=== PATIENT | female | born 1940 | race Caucasian/White ===

== ENCOUNTER 2020-12-31 12:07 | Emergency (ER) | payer SELFPAY ==
[~2020-12-31] VITALS: Ht 165.1 cm; Wt 51.8 kg
[2020-12-31 12:21] VITALS: BP_SYST 71
--- NOTE | 2020-12-31 12:29 | NUR ---
PATIENT WHEELCHAIR ASSISTED TO BED 2
--- NOTE | 2020-12-31 12:38 | NUR ---
Patient ambulated to restroom for urine sample.
--- NOTE | 2020-12-31 12:40 | NUR ---
80 y/o F BIB daughter with c/c epigastric pain and eye issues. Patient A&Ox4, ambulatory by self and via wheelchair, daughter at bedside, states 5-6 years of epigastric pain that worsen the past 3 days. Patient reports epigastric pain, 8/10, burning/intermittent, radiating to right flank and right back. Patient also states associated nausea/bloating, stating "it feels like a sour taste going up to my throat." Abdomen distended/soft/round. No pain or redbound tenderness upon palpation. Last BM: this morning "started dark to brown." Denies fever, chills, vomiting, diarrhea, constipation. Bed locked in lowest position, side rails x 1, call light in reach. PMH/Meds/Allergies: Denies Sx: Cholecystectomy Addendum: 12/31/20 at 1257 by [facility] Medication list per daughter: Thyroidectomy, Levotoroxine, Clortalidona, Bisprolol, Nexium, Salemetrol Sx: "Thyroid removal"
[2020-12-31] MEDS: ONDANSETRON 4 MG/2 ML VIAL IVP ONE (13:30)
[2020-12-31] MEDS: NACL 0.9% 1,000 ML IV ONE (13:30)
[2020-12-31] MEDS: MORPHINE SULFATE 4 MG/ML SYR IVP ONE (13:31)
--- NOTE | 2020-12-31 13:31 | NUR ---
Patient transported to CT via gurney.
[2020-12-31 13:39] LABS: ALBUMIN 2.6 g/dL (3.4-5.0); ANION GAP 5.2 (8-16); ASPARTATE AMINOTRANSFERASE 265 U/L (15-37); CARBON DIOXIDE 30.1 mmol/L (21-32); CHLORIDE 101 mmol/L (98-107); CREATININE 0.8 mg/dL (0.6-1.3); GLUCOSE 237 mg/dL (74-106); LIPASE 403 U/L (73-393); POTASSIUM 4.3 mmol/L (3.5-5.1); SODIUM SERUM 132 mmol/L (136-145); TOTAL BILIRUBIN 0.9 mg/dL (0.0-1.0); UREA NITROGEN, BLOOD 10 mg/dL (7-18)
[2020-12-31 13:41] LABS: BASOPHILS % (AUTO) 0.6 % (0.0-2.0); HEMATOCRIT 36.3 % (36-48); LYMPHOCYTES # (AUTO) 1.2 K/uL (2.5-16.5); LYMPHOCYTES % (AUTO) 36.9 % (20.5-51.1); MEAN CORPUSCULAR HEMOGLOBIN 29 pg (27-31); MEAN CORPUSCULAR HGB CONC 33 g/dL (33-37); MEAN CORPUSCULAR VOLUME 87.8 fL (80-94); MONOCYTES # (AUTO) 0.3 K/uL (0.8-1.0); MONOCYTES % (AUTO) 9.6 % (1.7-9.3); NEUTROPHILS # (AUTO) 1.7 K/uL (1.8-7.7); NEUTROPHILS % (AUTO) 52.9 % (42.2-75.2); PLATELET COUNT (AUTO) 84 K/uL (140-450); RED BLOOD CELL COUNT(AUTO) 4.13 MIL/uL (4.20-5.40); RED CELL DISTRIBUTION WIDTH 18.1 % (11.6-13.7); WHITE BLOOD COUNT (AUTO) 3.3 K/uL (4.8-10.8)
--- NOTE | 2020-12-31 13:43 | NUR ---
Patient returned from CT via gurney; placed back onto IVF and environmental protection forester.
--- NOTE | 2020-12-31 13:50 | NUR ---
Patient states positive relief to nausea and pain. Denies any nausea; reports pain 0/10 at this time. lunchroom monitor remains in place; RR 16 even/unlabored.
--- NOTE | 2020-12-31 14:06 | NUR ---
Dr. López is evaluating patient at bedside.
--- NOTE | 2020-12-31 14:57 | NUR ---
Patient resting comfortably in semi-fowlers position. quality assurance monitor remains in place. VSS; respirations even/unlabored; no distress noted. Bed locked in lowest position, side rails x 2 for pt safety, call light in reach.
[2020-12-31] MEDS ORDERED: BISO5TAB23 PO (15:03)
[2020-12-31] MEDS ORDERED: ONDA-24 SL (15:03)
--- NOTE | 2020-12-31 15:09 | NUR ---
Dr. López is reevaluating patient at bedside.
[2020-12-31 15:23] VITALS: BP 123/79
--- NOTE | 2020-12-31 15:23 | NUR ---
Patient discharged with v/s stable. Written and verbal after care instructions given and explained. Patient alert, oriented and verbalized understanding of instructions. Ambulatory with steady gait. All questions addressed prior to discharge. ID band removed. Patient advised to follow up with PMD. Rx of Bisoprolol, Ondansetron given. Patient educated on indication of medication including possible reaction and side effects. Opportunity to ask questions provided and answered.
[2021-01-03 06:08] LABS: HEPATITIS A ANTIBODY IGM Negative (Negative); HEPATITIS B CORE AB TOTAL Negative (Negative); HEPATITIS B SURFACE ANTIBODY Non Reactive (.); HEPATITIS B SURFACE ANTIGEN Negative (Negative)
== END 2020-12-31 15:23 | disposition home or self-care (01) ==
LOC: MED 12:07
DX: K74.60 Unspecified cirrhosis of liver (principal); R74.01 Elevation of levels of liver transaminase levels; R74.8 Abnormal levels of other serum enzymes
CPT/HCPCS: 36415; 74176; 80053; 83690; 85025; 86704; 86706; 86708; 86709; 86803; 87340; 96361; 96374; 96375; 99285; J2270; J2405; J7030